=== PATIENT | male | born 1965 | race Caucasian/White ===

== ENCOUNTER 2016-10-25 05:45 | Day surgery (SDC) | payer BC ==
[~2016-10-25] VITALS: Ht 170.2 cm; Wt 91.4 kg
[2016-10-25] MEDS ORDERED: CeFAZolin 2 GM/DEXTROSE 50 ML IV ONE ×2 (06:10→07:00)
[2016-10-25] MEDS ORDERED: RINGERS SOLUTION,LACTATED 1,000 ML IV ONE ×2 (06:10→06:30)
[2016-10-25] MEDS ORDERED: CALC600T95 PO (06:20)
[2016-10-25] MEDS ORDERED: IBUP-1547 PO (06:20)
[2016-10-25] MEDS ORDERED: HYDR-305 PO (06:20)
[2016-10-25] MEDS ORDERED: DOCU100C19 PO (06:20)
[2016-10-25 06:55] LABS: BASOPHILS # (AUTO) 0.02 K/uL (0.00-0.20); BASOPHILS % (AUTO) 0.2 % (0.0-2.0); EOSINOPHILS # (AUTO) 0.06 K/uL (0.00-0.70); EOSINOPHILS % (AUTO) 0.89 % (1.0-6.0); HEMATOCRIT 42.1 % (41-53); HEMOGLOBIN 14.2 g/dL (13.5-17.5); LYMPHOCYTES # (AUTO) 2.1 K/uL (1.0-4.8); LYMPHOCYTES % (AUTO) 30.6 % (22.0-44.0); MEAN CORPUSCULAR HEMOGLOBIN 30.8 pg (26.0-34.0); MEAN CORPUSCULAR HGB CONC 33.6 G/dL (31.0-37.0); MEAN CORPUSCULAR VOLUME 92 fL (80-100); MONOCYTES # (AUTO) 0.4 K/uL (0.1-1.0); MONOCYTES % (AUTO) 6.3 % (2.0-9.0); NEUTROPHILS # (AUTO) 4.2 K/uL (1.8-7.7); PLATELET COUNT (AUTO) 202 K/uL (150-450); RED BLOOD CELL COUNT(AUTO) 4.59 MIL/uL (4.50-5.90); RED CELL DISTRIBUTION WIDTH 12.5 % (11.5-14.5); WHITE BLOOD COUNT (AUTO) 6.8 K/uL (4.5-11.0)
[2016-10-25] MEDS ORDERED: MUPIROCIN CALCIUM 2% 22 GM OINTMENT ONE (07:39)
[2016-10-25] MEDS ORDERED: GUM MASTIC/STORAX/MSAL/ALCOHOL LIQUID 0.67 ML VIAL TP ONE (07:39)
[2016-10-25] MEDS ORDERED: SODIUM CHLORIDE 0.9% 1,000 ML IV ONE (08:27)
[2016-10-25] MEDS ORDERED: MEPERIDINE-PF 25 MG/ML SYRINGE IVP PRN (08:45)
[2016-10-25] MEDS: BUPIVACAINE HCL/PF 0.5% 30 ML VIAL ONE ×2 (08:56→09:20)
[2016-10-25] MEDS: BUPIVACAINE LIPOSOME/PF 1.3%-13.3MG/ML SUSPENSION 20 ML VIAL INJ ONE ×2 (08:57→09:20)
[2016-10-25] MEDS ORDERED: FentaNYL CITRATE-PF 100 MCG/2 ML VIAL ONE ×2 (09:54→10:18)
[2016-10-25] MEDS: FentaNYL CITRATE-PF 100 MCG/2 ML VIAL IVP PRN ×4 (09:57→10:41)
[2016-10-25] MEDS ORDERED: HYDROmorphone 2 MG/ML SYRINGE ONE (10:10)
[2016-10-25] MEDS: HYDROmorphone 2 MG/ML SYRINGE IVP PRN ×6 (10:14→11:13)
[2016-10-25] MEDS ORDERED: RINGERS SOLUTION,LACTATED 500 ML IV ONE (10:45)
[2016-10-25] MEDS ORDERED: OXYGEN THERAPY IH SCH (20:00)
[2016-10-25] MEDS ORDERED: ROCURONIUM BROMIDE 10 MG/ML 5 ML VIAL IVP ONE (23:12)
[2016-10-25] MEDS ORDERED: METOCLOPRAMIDE HCL 5 MG/ML 2 ML VIAL IVP ONE (23:12)
[2016-10-25] MEDS ORDERED: MIDAZOLAM HCL 2 MG/2 ML VIAL IVP ONE (23:12)
[2016-10-25] MEDS ORDERED: ONDANSETRON HCL 4 MG/2 ML VIAL IVP ONE (23:12)
[2016-10-25] MEDS ORDERED: NEOSTIGMINE METHYLSULFATE 1 MG/ML 10 ML VIAL IVP ONE (23:12)
[2016-10-25] MEDS ORDERED: LIDOCAINE HCL/PF 2% 5 ML VIAL IM ONE (23:12)
[2016-10-25] MEDS ORDERED: PROPOFOL 1% 20 ML VIAL IVP ONE (23:12)
[2016-10-25] MEDS ORDERED: FentaNYL CITRATE-PF 100 MCG/2 ML VIAL IVP ONE (23:12)
[2016-10-25] MEDS ORDERED: LIDOCAINE HCL/PF 2% 5 ML SYRINGE IVP ONE (23:12)
[2016-10-25] MEDS ORDERED: GLYCOPYRROLATE 0.2 MG/ML VIAL IM ONE (23:12)
== END 2016-10-25 12:30 | disposition home or self-care (01) ==
LOC: SURGERY 05:45
PROVIDERS: ATTEND Orthopaedic Surgery
DX: S52.572A Other intraarticular fracture of lower end of left radius, initial encounter for closed fracture (principal); S63.012A Subluxation of distal radioulnar joint of left wrist, initial encounter; S52.122A Displaced fracture of head of left radius, initial encounter for closed fracture; X58.XXXA Exposure to other specified factors, initial encounter; Y93.9 Activity, unspecified; Y92.9 Unspecified place or not applicable; Y99.9 Unspecified external cause status
CPT/HCPCS: 24655; 25020; 25609; 25676; 36415; 85025; 93005; C1713 ×3; C1769; C9290; J0690; J1170; J2250; J2405; J2704; J2765; J3010; J3490 ×5; J7030; J7120 ×2